=== PATIENT | female | born 1945 | race Caucasian/White ===

== ENCOUNTER 2019-02-14 08:42 | Emergency (ER) | payer OTHER ==
[~2019-02-14] VITALS: Ht 167.6 cm; Wt 81.6 kg
[2019-02-14] MEDS ORDERED: SYNTHROID100 MCG (08:53)
[2019-02-14] MEDS ORDERED: JANUMET 50-1,01 EACH (08:53)
[2019-02-14] MEDS ORDERED: CRESTOR20 MG (08:53)
[2019-02-14] MEDS ORDERED: LANSOPRAZOLE15 MG (08:54)
== END 2019-02-14 15:14 | disposition home or self-care (01) ==
LOC: ER 08:42
DX: N39.0 Urinary tract infection, site not specified (principal); B96.29 Other Escherichia coli [E. coli] as the cause of diseases classified elsewhere; M54.5 Low back pain

== ENCOUNTER 2019-08-26 15:30 | Emergency (ER) | payer OTHER ==
[~2019-08-26] VITALS: Ht 165.1 cm; Wt 79.4 kg
[~2019-08-26 15:30] MED LIST: CRESTOR20 MG; JANUMET 50-1,01 EACH; LANSOPRAZOLE15 MG; SYNTHROID100 MCG
[2019-08-26] MEDS ORDERED: CRESTOR5 MG PO (15:45)
[2019-08-26] MEDS ORDERED: JANUMET XR 50-1 EAC1 PO (15:46)
[2019-08-26] MEDS ORDERED: MICARDIS HCT 81 EAC1 PO (15:47)
== END 2019-08-26 21:34 | disposition home or self-care (01) ==
LOC: ER 15:30
DX: S80.02XA Contusion of left knee, initial encounter (principal); S90.32XA Contusion of left foot, initial encounter; W01.198A Fall on same level from slipping, tripping and stumbling with subsequent striking against other object, initial encounter; Y93.01 Activity, walking, marching and hiking; Y92.018 Other place in single-family (private) house as the place of occurrence of the external cause; Y99.8 Other external cause status